=== PATIENT | male | born 1970 | race Caucasian/White ===

== ENCOUNTER → 2018-10-03 11:05 | Outpatient (CLI) | payer OTHER, SELFPAY ==
--- NOTE | 2018-10-03 | DI.RAD.S_ITS ---
PROCEDURE: XR CERVICAL SPINE 2V OR 3V INDICATIONS: NECK PAIN TECHNIQUE: 3 view(s) of the cervical spine were acquired. COMPARISON: None. FINDINGS: Bones: No fractures or dislocations to the T1 level. The lateral masses of C1 appear intact on the odontoid view. No suspicious bony lesions. There is a moderate to moderately severe degenerative disc disease pattern it C4-C5 and especially C5-6 and C6-7. No subluxation is associated. Soft tissues: No prevertebral soft tissue swelling. IMPRESSION: Moderately severe degenerative disc disease over lower half of the cervical spine where spinal and foraminal stenosis likely is present at C5-C6 and C6-C7. No trauma or subluxation. Dictated by: Aubrey Caceres M.D. on 10/03/2018 at 13:26 Approved by: Aubrey Caceres M.D. on 10/03/2018 at 13:27
--- NOTE | 2018-10-03 | DI.RAD.S_ITS ---
PROCEDURE: XR KNEE RT 3V INDICATIONS: Right KNEE PAIN TECHNIQUE: 3 views of the knee were acquired. COMPARISON: None. FINDINGS: Bones: No fractures or dislocations. No suspicious bony lesions. Soft tissues: No joint effusion. No suspicious soft tissue calcifications. IMPRESSION: Mild degenerative osteoarthritic narrowing is seen at the medial compartment and the lateral facet of the patellofemoral joint without joint effusion or loose body. Dictated by: Aubrey Caceres M.D. on 10/03/2018 at 13:27 Approved by: Aubrey Caceres M.D. on 10/03/2018 at 13:28
== END ==
PROVIDERS: PCP Family Medicine; Visit Provider Family Medicine
DX: M54.2 Cervicalgia (principal); M25.561 Pain in right knee; G31.89 Other specified degenerative diseases of nervous system
CPT/HCPCS: 72040; 73562

== ENCOUNTER → 2018-10-10 12:31 | Outpatient (CLI) | payer OTHER, SELFPAY ==
--- NOTE | 2018-10-10 | DI.US.S_ITS ---
PROCEDURE: US CAROTID DOPPLER BI INDICATIONS: DIZZINESS, GIDDINESS TECHNIQUE: Color and pulse Doppler interrogation was performed of both carotid systems, with image documentation and velocity measurements. COMPARISON: None. FINDINGS: Stenosis calculations are based on SRU (Society of Radiologists in Ultrasound) criteria. The flow velocities and the arterial waveforms are normal within both carotid arterial systems. Atherosclerotic plaque is seen on both sides. The estimated degree of internal carotid artery stenosis is less than 50%. Antegrade flow is confirmed within both vertebral arteries. This study is limited by body habitus. IMPRESSION: No hemodynamically significant stenosis is seen. Atherosclerotic plaque is noted bilaterally. Dictated by: Romulo Jj M.D. on 10/10/2018 at 14:33 Approved by: Romulo jJ M.D. on 10/10/2018 at 14:34
== END ==
PROVIDERS: PCP Family Medicine; Visit Provider Family Medicine
DX: R42 Dizziness and giddiness (principal); I65.23 Occlusion and stenosis of bilateral carotid arteries
CPT/HCPCS: 93880

== ENCOUNTER 2018-11-30 13:45 | Outpatient (RCR) | payer OTHER, SELFPAY ==
--- NOTE | 2018-10-05 16:30 | PT.OPPOC ---
Current Diagnoses Pain in right knee (10/05/18) Provider Visit Care Team Role Provider Type Becka Martinez MD Attending Provider Non-Staff Primary Care Provider Specialty: Family Practice Address: [address] [place] [address], [place], [address] Email: Plan Of Care PT-OP-T Assessment and Plan Start: 10/05/18 16:14 Freq: Status: Active Protocol: Document 10/05/18 16:15 EA (Rec: 10/05/18 16:18 EA [id number]) Physical Therapy Assessment Rehab Potential Rehabilitation Potential Fair Evaluation Complexity Number of Personal Factors/Comorbidities 1-2 Number of Body Systems Impaired 3 Clinical Presentation at Evaluation Evolving Impairments Impairments Activity Tolerance Gait Pain ROM Soft Tissue Mobility Strength Assessment Summary Assessment Pleasant 47 y/o M patient with referring diagnosis of right knee pain. Today patient exhibits gait difficulty, squatting, and getting up from the floor due to right knee pain. Objective assessment reveals decreased right knee ROM, slight right mid knee swelling, tightness to both ITB, and both hip E-rotators, + with R Valgus test, + [place] signs, R LLD with 2 cm difference, and instability of right knee with SLS. Postural assessment reveals fair cervicothoracic with endomorphic body, slight valgus knees with slight increase of lateral patellar tracking, and decreased arch support. With the above mentioned dysfunction, patient unable to perform activities that is normally no limitation prior to current condition. In my professional opinion, patient would benefit with skilled PT to improve quality of life. However, I recommended to see his primary doctor due to abnormal blood pressure which may negatively impact treatment progression. Physical Therapy Plan Frequency and Duration Frequency of Treatment 2x/Week Duration of Treatment 10 wks Plan of Care Start Date 10/05/18 Plan of Care End Date 12/14/18 Therapeutic Interventions Therapeutic Interventions Gait Training Home Exercise Program Joint Mobilizations Manual Therapy Patient/Caregiver Education Self-Care/Home Management Soft Tissue Mobilization Taping Therapeutic Activities Therapeutic Exercises Modalities Cold Pack/Ice Massage Electric Stimulation Hot Packs Ultrasound Other Referrals/Consults Referrals/Consults Recommended Physician re-check due to elevated BP (160/110) at rest. Next Visit Focus/Plan Next Note Type Treatment Note Plan of Care Dates Plan of Care Start Date 10/05/18 Plan of Care End Date 12/14/18 Please Sign and Return: I have reviewed this Plan of Care and certify that the skilled therapy services above are required to meet the patient?s needs. Physician Signature Date Printed Name and Credentials Clinical Instructor Signature Printed Name and Credentials
--- NOTE | 2018-10-05 16:30 | PT.OIE ---
Current Diagnoses Pain in right knee (10/05/18) Provider Visit Care Team Role Provider Type Becka Martinez MD Attending Provider Non-Staff Primary Care Provider Specialty: Family Practice Address: [address] [place] [address], [id number] Email: Physical Therapy Initial Evaluation PT-OP-A Visit Information Start: 10/05/18 16:14 Freq: Status: Active Protocol: Document 10/05/18 16:20 EA (Rec: 10/11/18 07:30 EA [id number]) Out-Patient Physical Therapy Visit Information Visit Information Visit Type Initial Evaluation Visit Start Time 13:45 Visit Stop Time 14:30 Total Visit Minutes 35 Visit Number 1 Number of METEOROLOGICAL TECHNICIAN Visits 0 Evaluation Information Evaluation Date 10/05/18 PT-OP-B Current Condition Start: 10/05/18 16:14 Freq: Status: Active Protocol: Document 10/05/18 16:20 EA (Rec: 10/11/18 07:30 EA [id number]) Current Condition History of Current Condition Onset Date 5 years ago Current Complaints R knee pain History of Current Condition 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 A year ago he noticed that he has difficulty getting up from the floor during physical training; he mentioned that his training managed with avoiding kneeling or putting pressure to affected side. He went for a doctor check up and was recommended at this time to avoid any physical training . 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 Prior Treatments and Tests No formal PT treatment in the past. 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 Get rid of the pain so he could get back skiing, distance walking and be able to attend training at work. 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 Personal Factors Other Personal Factors That May Effect High blood presure, Obesity. Therapy/Recovery PT-OP-C Subjective Start: 10/05/18 16:14 Freq: Status: Active Protocol: Document 10/05/18 16:20 EA (Rec: 10/11/18 13:49 EA [id number]) OP-PT Subjective Patient Comments Patient Comments Pt reports he has to stop activities such running, skiing and walking due to increasing pain. Patient Reported Progress Worse Patient Questionnaires Lower Extremity Functional Scale LEFS Score 58 LEFS Impairment 20 to 39% Impaired (Score 48- 62) OP-PT Pain Assessment Pain Assessment Grid Paper Pain Assessment Grid Completed Yes Location Left Anterior Knee Pain Location Details right ant knee Intensity 5 Pain Aggravating Factors Activity Exercise Walking Stair Climbing Lifting Patient Stated Pain Goal 0 Home Pain Medication Use Pain Medications Used Yes PT-OP-D Balance Start: 10/05/18 16:14 Freq: Status: Active Protocol: Document 10/05/18 16:20 EA (Rec: 10/11/18 15:33 EA [id number]) Balance Tests Single Limb Standing Single Limb- Right < 5 seconds Single Limb- Left > 10 seconds PT-OP-F Manual Assessment Start: 10/05/18 16:14 Freq: Status: Active Protocol: Document 10/05/18 16:20 EA (Rec: 10/11/18 13:49 EA [id number]) Manual Assessments Soft Tissue Assessment Soft Tissue Mobility Assessment Tight both hamstrings, hip ER, and ITB Joint Mobility Assessment Joint Mobility Assessment normal mobility PT-OP-G Mobility & Gait Start: 10/05/18 16:14 Freq: Status: Active Protocol: Document 10/05/18 16:20 EA (Rec: 10/11/18 13:49 EA [id number]) OP Gait Assessment Gait Gait Assistance Required: Independent Assistive Devices Assistive Device None Gait Deviations General Gait Pattern Antalgic PT-OP-J Posture/Palpation/Skin Start: 10/05/18 16:14 Freq: Status: Active Protocol: Document 10/05/18 16:20 EA (Rec: 10/11/18 15:33 EA [id number]) Palpation Assessment Location One Palpation Location medial patellar ligament, MCL, medial tibial tubercle Palpation Findings Tenderness Palpation Details Both hip External rotators, ITB, hamstrings, hip flexor tightness Skin Assessment Circumference Measurement 2 Location Right mid knee Measurement (Centimeters) 38 Comments supine 1 Location Left Mid knee joint Measurement (Centimeters) 33 Comments supine PT-OP-K Range of Motion Start: 10/05/18 16:14 Freq: Status: Active Protocol: Document 10/05/18 16:20 EA (Rec: 10/11/18 15:35 EA [id number]) Knee Goniometric Range of Motion Knee Measured in Degrees Left Knee ROM WFL Yes Right Knee ROM WFL Yes PT-OP-L Special Tests Start: 10/05/18 16:14 Freq: Status: Active Protocol: Document 10/05/18 16:20 EA (Rec: 10/11/18 15:33 EA [id number]) Special Tests Knee Special Tests Patellar Grind Test Test Results + right Valgus- 25 Degrees Test Results Sensitive Geronimo's Sign Test Results + Jeanette's Test Test Results + PT-OP-M Strength Start: 10/05/18 16:14 Freq: Status: Active Protocol: Document 10/05/18 16:20 EA (Rec: 10/11/18 15:33 EA [id number]) Knee Strength Knee Manual Muscle Testing Right Reason Not Measured WFL Comments Moderate difficulty with right single leg squat Left Reason Not Measured WFL PT-OP-Q Treatments Start: 10/05/18 16:14 Freq: Status: Active Protocol: Document 10/05/18 16:18 EA (Rec: 10/05/18 16:19 EA [id number]) Self-Care/Home Management Treatment Education Patient Education Home Exercise Program Joint Protection Pain Management Other Education Discussed the importance of weight loss with current knee condition and as well hypertension PT-OP-T Assessment and Plan Start: 10/05/18 16:14 Freq: Status: Active Protocol: Document 10/05/18 16:15 EA (Rec: 10/05/18 16:18 EA [id number]) Physical Therapy Assessment Rehab Potential Rehabilitation Potential Fair Evaluation Complexity Number of Personal Factors/Comorbidities 1-2 Number of Body Systems Impaired 3 Clinical Presentation at Evaluation Evolving Impairments Impairments Activity Tolerance Gait Pain ROM Soft Tissue Mobility Strength Assessment Summary Assessment Pleasant 47 y/o M patient with referring diagnosis of right knee pain. Today patient exhibits gait difficulty, squatting, and getting up from the floor due to right knee pain. Objective assessment reveals decreased right knee ROM, slight right mid knee swelling, tightness to both ITB, and both hip E-rotators, + with R Valgus test, + [place] signs, R LLD with 2 cm difference, and instability of right knee with SLS. Postural assessment reveals fair cervicothoracic with endomorphic body, slight valgus knees with slight increase of lateral patellar tracking, and decreased arch support. With the above mentioned dysfunction, patient unable to perform activities that is normally no limitation prior to current condition. In my professional opinion, patient would benefit with skilled PT to improve quality of life. However, I recommended to see his primary doctor due to abnormal blood pressure which may negatively impact treatment progression. Physical Therapy Plan Frequency and Duration Frequency of Treatment 2x/Week Duration of Treatment 10 wks Plan of Care Start Date 10/05/18 Plan of Care End Date 12/14/18 Therapeutic Interventions Therapeutic Interventions Gait Training Home Exercise Program Joint Mobilizations Manual Therapy Patient/Caregiver Education Self-Care/Home Management Soft Tissue Mobilization Taping Therapeutic Activities Therapeutic Exercises Modalities Cold Pack/Ice Massage Electric Stimulation Hot Packs Ultrasound Other Referrals/Consults Referrals/Consults Recommended Physician re-check due to elevated BP (160/110) at rest. Next Visit Focus/Plan Next Note Type Treatment Note
--- NOTE | 2018-10-20 12:22 | PT.OTN ---
Current Diagnoses Pain in right knee (10/20/18) Physical Therapy Treatment Note PT-OP-A Visit Information Start: 10/05/18 16:14 Freq: Status: Active Protocol: Document 10/20/18 11:15 HH (Rec: 10/20/18 12:22 HH [id number]) Out-Patient Physical Therapy Visit Information Visit Information Visit Type Treatment Note Visit Start Time 11:15 Visit Stop Time 12:00 Total Visit Minutes 45 Visit Number 2 Number of SUPERVISOR THROWING DEPARTMENT Visits 0 PT-OP-B Current Condition Start: 10/05/18 16:14 Freq: Status: Active Protocol: Document 10/05/18 16:20 EA (Rec: 10/11/18 07:30 EA [id number]) Current Condition History of Current Condition Onset Date 5 years ago Current Complaints R knee pain History of Current Condition 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 A year ago he noticed that he has difficulty getting up from the floor during physical training; he mentioned that his training managed with avoiding kneeling or putting pressure to affected side. He went for a doctor check up and was recommended at this time to avoid any physical training . 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 Prior Treatments and Tests No formal PT treament in the past. 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 Get rid of the pain so he could get back skiing, distance walking and be able to attend training at work. 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 Personal Factors Other Personal Factors That May Effect High blood presure, Obesity. Therapy/Recovery PT-OP-C Subjective Start: 10/05/18 16:14 Freq: Status: Active Protocol: Document 10/20/18 11:15 HH (Rec: 10/20/18 12:22 HH [email or web address]) OP-PT Subjective Patient Comments Patient Comments Pt states I feels okay so far. PT-OP-D Balance Start: 10/05/18 16:14 Freq: Status: Active Protocol: Document 10/05/18 16:20 EA (Rec: 10/11/18 15:33 EA [id number]) Balance Tests Single Limb Standing Single Limb- Right < 5 seconds Single Limb- Left > 10 seconds PT-OP-F Manual Assessment Start: 10/05/18 16:14 Freq: Status: Active Protocol: Document 10/05/18 16:20 EA (Rec: 10/11/18 13:49 EA [id number]) Manual Assessments Soft Tissue Assessment Soft Tissue Mobility Assessment Tight both hamstrings, hip ER, and ITB Joint Mobility Assessment Joint Mobility Assessment normal mobility PT-OP-G Mobility & Gait Start: 10/05/18 16:14 Freq: Status: Active Protocol: Document 10/05/18 16:20 EA (Rec: 10/11/18 13:49 EA [id number]) OP Gait Assessment Gait Gait Assistance Required: Independent Assistive Devices Assistive Device None Gait Deviations General Gait Pattern Antalgic PT-OP-J Posture/Palpation/Skin Start: 10/05/18 16:14 Freq: Status: Active Protocol: Document 10/05/18 16:20 EA (Rec: 10/11/18 15:33 EA [id number]) Palpation Assessment Location One Palpation Location medial patellar ligament, MCL, medial tibial tubercle Palpation Findings Tenderness Palpation Details Both hip External rotators, ITB, hamstrings, hip flexor tightness Skin Assessment Circumference Measurement 2 Location Right mid knee Measurement (Centimeters) 38 Comments supine 1 Location Left Mid knee joint Measurement (Centimeters) 33 Comments supine PT-OP-K Range of Motion Start: 10/05/18 16:14 Freq: Status: Active Protocol: Document 10/05/18 16:20 EA (Rec: 10/11/18 15:35 EA [id number]) Knee Goniometric Range of Motion Knee Measured in Degrees Left Knee ROM WFL Yes Right Knee ROM WFL Yes PT-OP-L Special Tests Start: 10/05/18 16:14 Freq: Status: Active Protocol: Document 10/05/18 16:20 EA (Rec: 10/11/18 15:33 EA [id number]) Special Tests Knee Special Tests Patellar Grind Test Test Results + right Valgus- 25 Degrees Test Results Sensitive Geronimo's Sign Test Results + Jeanette's Test Test Results + PT-OP-M Strength Start: 10/05/18 16:14 Freq: Status: Active Protocol: Document 10/05/18 16:20 EA (Rec: 10/11/18 15:33 EA [id number]) Knee Strength Knee Manual Muscle Testing Right Reason Not Measured WFL Comments Moderate difficulty with right single leg squat Left Reason Not Measured WFL PT-OP-Q Treatments Start: 10/05/18 16:14 Freq: Status: Active Protocol: Document 10/20/18 11:15 HH (Rec: 10/20/18 12:22 HH [email or web address]) Cardio Equipment Bicycle (Upright) Duration (Minutes) 8 Resistance 5 Therapeutic Exercises Standing Exercises quad stretch Side bilateral Equipment Used R ankle at table for support Reps/Minutes 10 x2 Comments cues for upright position. hip hinge Side bilateral Equipment Used grab bar Reps/Minutes 10 x4 Comments cues for hip hinge standing TKE Side right Resistance level 3 band Equipment Used level 3 band Reps/Minutes 10 x 4 Comments cues for slow control, avoid upper body movements Manual Therapy Treatment Soft Tissue Mobilization IT band Mobilization Type Strumming Sustained Pressure Trigger Point Release Intensity/Depth Moderate Body Position Supine quad Mobilization Type Cross-Friction Strumming Sustained Pressure Trigger Point Release Intensity/Depth Moderate Body Position Supine patellar tendon Mobilization Type Cross-Friction Strumming Sustained Pressure Trigger Point Release Intensity/Depth Moderate Body Position Supine PT-OP-T Assessment and Plan Start: 10/05/18 16:14 Freq: Status: Active Protocol: Document 10/20/18 11:15 HH (Rec: 10/20/18 12:22 HH [email or web address]) Physical Therapy Assessment Goals squat mechanics Impairment Pt does not know hip hinge pattern Detention Goal (LTG) pt will be able to perform hip hinge pattern for STS, lowering activities to prevent excessive PF stress LTG Duration 8 weeks pain Impairment significant pain during walking, squatting Manager Heart Failure Goal (LTG) pt will be able to perform prolonged walking and squatting without pain to improve mobility such as STS at home/ work LTG Duration 8 weeks mobility Impairment pt currently unable to do lunge due to pain Detention Goal (LTG) pt will be able to perform lunges from floor without UE support during work related training. LTG Duration 8 weeks Assessment Summary Assessment Pt presents knee dominant pattern during STS/ squatting activities. He also tends to WB on his L LE during dynamic/ static standing. today focus on R TKE, manual therapy on patellar tendon, quad, quad stretch and hip hinge pattern. Pt reports pain significantly reduced with hip hinge pattern and after patellar tendon stm., Physical Therapy Plan Next Visit Focus/Plan Next Note Type Treatment Note Next Visit Plan reassess hep hip hinge pattern training bicycle R TKE squat with hip hinge pattern as davin
--- NOTE | 2018-11-03 16:41 | PT.OTN ---
Current Diagnoses Pain in right knee (11/03/18) Physical Therapy Treatment Note PT-OP-A Visit Information Start: 10/05/18 16:14 Freq: Status: Active Protocol: Document 11/03/18 15:15 HH (Rec: 11/03/18 16:41 HH [email or web address]) Out-Patient Physical Therapy Visit Information Visit Information Visit Type Treatment Note Visit Start Time 15:15 Visit Stop Time 16:00 Total Visit Minutes 45 Visit Number 3 Number of CRYSTAL LAPPER Visits 0 PT-OP-B Current Condition Start: 10/05/18 16:14 Freq: Status: Active Protocol: Document 10/05/18 16:20 EA (Rec: 10/11/18 07:30 EA [id number]) Current Condition History of Current Condition Onset Date 5 years ago Current Complaints R knee pain History of Current Condition 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 A year ago he noticed that he has difficulty getting up from the floor during physical training; he mentioned that his training managed with avoiding kneeling or putting pressure to affected side. He went for a doctor check up and was recommended at this time to avoid any physical training . 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 Prior Treatments and Tests No formal PT treament in the past. 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 Get rid of the pain so he could get back skiing, distance walking and be able to attend training at work. 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 Personal Factors Other Personal Factors That May Effect High blood presure, Obesity. Therapy/Recovery PT-OP-C Subjective Start: 10/05/18 16:14 Freq: Status: Active Protocol: Document 11/03/18 15:15 HH (Rec: 11/03/18 16:41 HH [email or web address]) OP-PT Subjective Patient Comments Patient Comments my knee doesnt both me much now. merlin been doing my knee ex and using hip hinge to lift. It helps a lot. PT-OP-D Balance Start: 10/05/18 16:14 Freq: Status: Active Protocol: Document 10/05/18 16:20 EA (Rec: 10/11/18 15:33 EA [id number]) Balance Tests Single Limb Standing Single Limb- Right < 5 seconds Single Limb- Left > 10 seconds PT-OP-F Manual Assessment Start: 10/05/18 16:14 Freq: Status: Active Protocol: Document 10/05/18 16:20 EA (Rec: 10/11/18 13:49 EA [id number]) Manual Assessments Soft Tissue Assessment Soft Tissue Mobility Assessment Tight both hamstrings, hip ER, and ITB Joint Mobility Assessment Joint Mobility Assessment normal mobility PT-OP-G Mobility & Gait Start: 10/05/18 16:14 Freq: Status: Active Protocol: Document 10/05/18 16:20 EA (Rec: 10/11/18 13:49 EA [id number]) OP Gait Assessment Gait Gait Assistance Required: Independent Assistive Devices Assistive Device None Gait Deviations General Gait Pattern Antalgic PT-OP-J Posture/Palpation/Skin Start: 10/05/18 16:14 Freq: Status: Active Protocol: Document 10/05/18 16:20 EA (Rec: 10/11/18 15:33 EA [id number]) Palpation Assessment Location One Palpation Location medial patellar ligament, MCL, medial tibial tubercle Palpation Findings Tenderness Palpation Details Both hip External rotators, ITB, hamstrings, hip flexor tightness Skin Assessment Circumference Measurement 2 Location Right mid knee Measurement (Centimeters) 38 Comments supine 1 Location Left Mid knee joint Measurement (Centimeters) 33 Comments supine PT-OP-K Range of Motion Start: 10/05/18 16:14 Freq: Status: Active Protocol: Document 10/05/18 16:20 EA (Rec: 10/11/18 15:35 EA [id number]) Knee Goniometric Range of Motion Knee Measured in Degrees Left Knee ROM WFL Yes Right Knee ROM WFL Yes PT-OP-L Special Tests Start: 10/05/18 16:14 Freq: Status: Active Protocol: Document 10/05/18 16:20 EA (Rec: 10/11/18 15:33 EA [id number]) Special Tests Knee Special Tests Patellar Grind Test Test Results + right Valgus- 25 Degrees Test Results Sensitive Geronimo's Sign Test Results + Jeanette's Test Test Results + PT-OP-M Strength Start: 10/05/18 16:14 Freq: Status: Active Protocol: Document 10/05/18 16:20 EA (Rec: 10/11/18 15:33 EA [id number]) Knee Strength Knee Manual Muscle Testing Right Reason Not Measured WFL Comments Moderate difficulty with right single leg squat Left Reason Not Measured WFL PT-OP-Q Treatments Start: 10/05/18 16:14 Freq: Status: Active Protocol: Document 11/03/18 15:15 HH (Rec: 11/03/18 16:41 HH [email or web address]) Cardio Equipment Recumbent Stepper (Sci-Fit) Duration (Minutes) 5 Resistance 6 Gym Equipment Shuttle Recovery B squat forefoot push off Resistance 50# Shuttle Recovery Platform Stable Reps/Time 10 x 3 B squat mid foot push off Resistance 75# Shuttle Recovery Platform Stable Reps/Time 10 x3 B squat heel push off Resistance 75 # Shuttle Recovery Platform Stable Reps/Time 10 x3 Sport Cord resisted hip hinge Cord/Resistance red Reps/Duration 5 mins Comments resisted hip hinge Therapeutic Exercises Sitting Exercises deadlift Side bilateral Reps/Minutes 10x3 Comments cues for hip hinge Manual Therapy Treatment Soft Tissue Mobilization IT band Mobilization Type Strumming Sustained Pressure Trigger Point Release Intensity/Depth Moderate Body Position Supine quad Mobilization Type Cross-Friction Strumming Sustained Pressure Trigger Point Release Intensity/Depth Moderate Body Position Supine PT-OP-T Assessment and Plan Start: 10/05/18 16:14 Freq: Status: Active Protocol: Document 11/03/18 15:15 HH (Rec: 11/03/18 16:41 HH [email or web address]) Physical Therapy Assessment Goals squat mechanics Impairment Pt does not know hip hinge pattern Manager Of Maintenance Goal (LTG) pt will be able to perform hip hinge pattern for STS, lowering activities to prevent excessive PF stress LTG Duration 8 weeks pain Impairment significant pain during walking, squatting Manager Of Maintenance Goal (LTG) pt will be able to perform prolonged walking and squatting without pain to improve mobility such as STS at home/ work LTG Duration 8 weeks mobility Impairment pt currently unable to do lunge due to pain Jail Goal (LTG) pt will be able to perform lunges from floor without UE support during work related training. Assessment Summary Assessment Pt has improved symptoms recently with better understanding using hip hinge pattern for lifting objects. Pt current pain threshold at 75# during leg press. but symptoms decrease with increase in reps. will cont for B LE strengthening with slow control and add full body exercise to assist pt in weight loss. Physical Therapy Plan Next Visit Focus/Plan Next Note Type Treatment Note Next Visit Plan reassess hep hip hinge pattern training bicycle R TKE squat with hip hinge pattern as davin leg press from 75# slow eccentric.
--- NOTE | 2018-11-07 17:51 | PT.OTN ---
Current Diagnoses Pain in right knee (11/07/18) Physical Therapy Treatment Note PT-OP-A Visit Information Start: 10/05/18 16:14 Freq: Status: Active Protocol: Document 11/07/18 16:45 HH (Rec: 11/07/18 17:51 HH [email or web address]) Out-Patient Physical Therapy Visit Information Visit Information Visit Type Treatment Note Visit Start Time 16:45 Visit Stop Time 17:40 Total Visit Minutes 55 Visit Number 4 Number of OIL EXPELLER OPERATOR Visits 0 PT-OP-B Current Condition Start: 10/05/18 16:14 Freq: Status: Active Protocol: Document 10/05/18 16:20 EA (Rec: 10/11/18 07:30 EA [id number]) Current Condition History of Current Condition Onset Date 5 years ago Current Complaints R knee pain History of Current Condition 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 A year ago he noticed that he has difficulty getting up from the floor during physical training; he mentioned that his training managed with avoiding kneeling or putting pressure to affected side. He went for a doctor check up and was recommended at this time to avoid any physical training . 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 Prior Treatments and Tests No formal PT treament in the past. 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 Get rid of the pain so he could get back skiing, distance walking and be able to attend training at work. 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 Personal Factors Other Personal Factors That May Effect High blood presure, Obesity. Therapy/Recovery PT-OP-C Subjective Start: 10/05/18 16:14 Freq: Status: Active Protocol: Document 11/07/18 16:45 HH (Rec: 11/07/18 17:51 HH [email or web address]) OP-PT Subjective Patient Comments Patient Comments My knee got aggravated a little bit after last tx with leg press but it goes away within 2 days. Overall feel better. Patient Reported Progress Improving PT-OP-D Balance Start: 10/05/18 16:14 Freq: Status: Active Protocol: Document 10/05/18 16:20 EA (Rec: 10/11/18 15:33 EA [id number]) Balance Tests Single Limb Standing Single Limb- Right < 5 seconds Single Limb- Left > 10 seconds PT-OP-F Manual Assessment Start: 10/05/18 16:14 Freq: Status: Active Protocol: Document 10/05/18 16:20 EA (Rec: 10/11/18 13:49 EA [id number]) Manual Assessments Soft Tissue Assessment Soft Tissue Mobility Assessment Tight both hamstrings, hip ER, and ITB Joint Mobility Assessment Joint Mobility Assessment normal mobility PT-OP-G Mobility & Gait Start: 10/05/18 16:14 Freq: Status: Active Protocol: Document 10/05/18 16:20 EA (Rec: 10/11/18 13:49 EA [id number]) OP Gait Assessment Gait Gait Assistance Required: Independent Assistive Devices Assistive Device None Gait Deviations General Gait Pattern Antalgic PT-OP-J Posture/Palpation/Skin Start: 10/05/18 16:14 Freq: Status: Active Protocol: Document 10/05/18 16:20 EA (Rec: 10/11/18 15:33 EA [id number]) Palpation Assessment Location One Palpation Location medial patellar ligament, MCL, medial tibial tubercle Palpation Findings Tenderness Palpation Details Both hip External rotators, ITB, hamstrings, hip flexor tightness Skin Assessment Circumference Measurement 2 Location Right mid knee Measurement (Centimeters) 38 Comments supine 1 Location Left Mid knee joint Measurement (Centimeters) 33 Comments supine PT-OP-K Range of Motion Start: 10/05/18 16:14 Freq: Status: Active Protocol: Document 10/05/18 16:20 EA (Rec: 10/11/18 15:35 EA [id number]) Knee Goniometric Range of Motion Knee Measured in Degrees Left Knee ROM WFL Yes Right Knee ROM WFL Yes PT-OP-L Special Tests Start: 10/05/18 16:14 Freq: Status: Active Protocol: Document 10/05/18 16:20 EA (Rec: 10/11/18 15:33 EA [id number]) Special Tests Knee Special Tests Patellar Grind Test Test Results + right Valgus- 25 Degrees Test Results Sensitive Geronimo's Sign Test Results + Jeanette's Test Test Results + PT-OP-M Strength Start: 10/05/18 16:14 Freq: Status: Active Protocol: Document 10/05/18 16:20 EA (Rec: 10/11/18 15:33 EA [id number]) Knee Strength Knee Manual Muscle Testing Right Reason Not Measured WFL Comments Moderate difficulty with right single leg squat Left Reason Not Measured WFL PT-OP-Q Treatments Start: 10/05/18 16:14 Freq: Status: Active Protocol: Document 11/07/18 16:45 HH (Rec: 11/07/18 17:51 HH [email or web address]) Cardio Equipment Bicycle (Upright) Duration (Minutes) 8 Resistance 5 Gym Equipment Shuttle Recovery B squat forefoot push off Resistance 50# Shuttle Recovery Platform Stable Reps/Time 10 x3 with green band on knees B squat mid foot push off Resistance 75# Shuttle Recovery Platform Stable Reps/Time 10 x3 with green band on knees B squat heel push off Resistance 75 # Shuttle Recovery Platform Stable Reps/Time 10 x3 with green band on knees Sport Cord resisted hip hinge Cord/Resistance red Reps/Duration 5 mins Comments resisted hip hinge Therapeutic Exercises Standing Exercises single leg stance with knee bent Side bilateral Reps/Minutes 10 secs x6 Comments slight knee bent single leg stance with knee straight Side bilateral Reps/Minutes 10 secs x 6 Comments knee straight standing TKE Side right Resistance level 3 band Equipment Used level 3 band Reps/Minutes 10 x 4 Comments cues for slow control, avoid upper body movements Manual Therapy Treatment Soft Tissue Mobilization IT band Mobilization Type Strumming Sustained Pressure Trigger Point Release Intensity/Depth Moderate Body Position Supine quad Mobilization Type Cross-Friction Strumming Sustained Pressure Trigger Point Release Intensity/Depth Moderate Body Position Supine patellar tendon Mobilization Type Cross-Friction Strumming Sustained Pressure Trigger Point Release Intensity/Depth Moderate Body Position Supine PT-OP-T Assessment and Plan Start: 10/05/18 16:14 Freq: Status: Active Protocol: Document 11/07/18 16:45 HH (Rec: 11/07/18 17:51 HH [email or web address]) Physical Therapy Assessment Assessment Summary Assessment Focused on single leg stability and squat mechanics. Pt has significant poor single leg stance on R compared to L. Pt also reports his pain went away immediately and able to squat deeper during leg press with abduction band at knees. Physical Therapy Plan Next Visit Focus/Plan Next Note Type Treatment Note Next Visit Plan reassess hep hip abd band on knees for squatting activtiies. hip hinge pattern training bicycle R TKE squat with hip hinge pattern as davin leg press from 75# slow eccentric.
--- NOTE | 2018-11-10 10:36 | PT.OTN ---
Current Diagnoses Pain in right knee (11/10/18) Physical Therapy Treatment Note PT-OP-A Visit Information Start: 10/05/18 16:14 Freq: Status: Active Protocol: Document 11/10/18 10:36 RCC (Rec: 11/10/18 13:12 RCC [email or web address]) Out-Patient Physical Therapy Visit Information Visit Information Visit Type Treatment Note Visit Start Time 10:36 Visit Stop Time 11:15 Total Visit Minutes 39 Visit Number 5 Number of PAYROLL ANALYST Visits 0 Evaluation Information Evaluation Date 10/05/18 PT-OP-B Current Condition Start: 10/05/18 16:14 Freq: Status: Active Protocol: Document 10/05/18 16:20 EA (Rec: 10/11/18 07:30 EA [id number]) Current Condition History of Current Condition Onset Date 5 years ago Current Complaints R knee pain History of Current Condition 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 A year ago he noticed that he has difficulty getting up from the floor during physical training; he mentioned that his training managed with avoiding kneeling or putting pressure to affected side. He went for a doctor check up and was recommended at this time to avoid any physical training . 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 Prior Treatments and Tests No formal PT treament in the past. 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 Get rid of the pain so he could get back skiing, distance walking and be able to attend training at work. 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 Personal Factors Other Personal Factors That May Effect High blood presure, Obesity. Therapy/Recovery PT-OP-C Subjective Start: 10/05/18 16:14 Freq: Status: Active Protocol: Document 11/10/18 10:36 RCC (Rec: 11/10/18 13:12 RCC [email or web address]) OP-PT Subjective Patient Comments Patient Comments Pt walked 1.5 to 2 miles yesterday, with R knee pain increasing to 6/10. He took ibuprofen this morning which has helped. PT-OP-D Balance Start: 10/05/18 16:14 Freq: Status: Active Protocol: Document 10/05/18 16:20 EA (Rec: 10/11/18 15:33 EA [id number]) Balance Tests Single Limb Standing Single Limb- Right < 5 seconds Single Limb- Left > 10 seconds PT-OP-F Manual Assessment Start: 10/05/18 16:14 Freq: Status: Active Protocol: Document 11/10/18 10:36 RCC (Rec: 11/10/18 13:12 RCC [email or web address]) Manual Assessments Joint Mobility Assessment Joint Mobility Assessment mild hypomobile PF inferior glide PT-OP-G Mobility & Gait Start: 10/05/18 16:14 Freq: Status: Active Protocol: Document 10/05/18 16:20 EA (Rec: 10/11/18 13:49 EA [id number]) OP Gait Assessment Gait Gait Assistance Required: Independent Assistive Devices Assistive Device None Gait Deviations General Gait Pattern Antalgic PT-OP-J Posture/Palpation/Skin Start: 10/05/18 16:14 Freq: Status: Active Protocol: Document 10/05/18 16:20 EA (Rec: 10/11/18 15:33 EA [id number]) Palpation Assessment Location One Palpation Location medial patellar ligament, MCL, medial tibial tubercle Palpation Findings Tenderness Palpation Details Both hip External rotators, ITB, hamstrings, hip flexor tightness Skin Assessment Circumference Measurement 2 Location Right mid knee Measurement (Centimeters) 38 Comments supine 1 Location Left Mid knee joint Measurement (Centimeters) 33 Comments supine PT-OP-K Range of Motion Start: 10/05/18 16:14 Freq: Status: Active Protocol: Document 10/05/18 16:20 EA (Rec: 10/11/18 15:35 EA [id number]) Knee Goniometric Range of Motion Knee Measured in Degrees Left Knee ROM WFL Yes Right Knee ROM WFL Yes PT-OP-L Special Tests Start: 10/05/18 16:14 Freq: Status: Active Protocol: Document 10/05/18 16:20 EA (Rec: 10/11/18 15:33 EA [id number]) Special Tests Knee Special Tests Patellar Grind Test Test Results + right Valgus- 25 Degrees Test Results Sensitive Geronimo's Sign Test Results + Jeanette's Test Test Results + PT-OP-M Strength Start: 10/05/18 16:14 Freq: Status: Active Protocol: Document 10/05/18 16:20 EA (Rec: 10/11/18 15:33 EA [id number]) Knee Strength Knee Manual Muscle Testing Right Reason Not Measured WFL Comments Moderate difficulty with right single leg squat Left Reason Not Measured WFL PT-OP-Q Treatments Start: 10/05/18 16:14 Freq: Status: Active Protocol: Document 11/10/18 10:36 RCC (Rec: 11/10/18 13:12 RCC [email or web address]) Gym Equipment Shuttle Recovery B squat forefoot push off Resistance 50# Shuttle Recovery Platform Stable Reps/Time 10 x3 B squat mid foot push off Resistance 50# Shuttle Recovery Platform Stable Reps/Time 10 x3 B squat heel push off Resistance 50 # Shuttle Recovery Platform Stable Reps/Time 10 x3 Shuttle Balance Red Details normal stance EO: A/P and lateral Reps/Duration 10 min Comments emphasis on even WB, knee alignment, core stability Therapeutic Exercises Standing Exercises lateral walk with squat Standing Exercise Name lateral walk with squat Side bilateral Resistance L2 band around knees Reps/Minutes 1 lap each direction standing TKE Side right Resistance level 3 band Equipment Used level 3 band Reps/Minutes 10 x 4 Comments cues for slow control, avoid upper body movements Manual Therapy Treatment Soft Tissue Mobilization patellar tendon Mobilization Type Cross-Friction Strumming Intensity/Depth Moderate Body Position Supine Joint Mobilizations patellofemoral R Direction inferior Grade III Body Position Supine Reps/Duration 4 min Taping 1 Body Location R knee Type of Tape Kinesio Tape Skin Inspection clear/good Comments 2 Y strips anterior R knee PT-OP-T Assessment and Plan Start: 10/05/18 16:14 Freq: Status: Active Protocol: Document 11/10/18 10:36 RCC (Rec: 11/10/18 13:12 RCC [email or web address]) Physical Therapy Assessment Assessment Summary Assessment Pt with less discomfort in R knee with squatting with application of Kinesiotape this session. Pt requires tactile cuing for LE alignment with squatting and on leg press initially, but able to self correct after 1st set. Physical Therapy Plan Next Visit Focus/Plan Next Note Type Treatment Note Next Visit Plan cont to educate and perform squats with hip hinge, hip strengthening, quad/HS strength and knee alignment
--- NOTE | 2018-11-23 15:17 | PT.OTN ---
Current Diagnoses Pain in right knee (11/23/18) Physical Therapy Treatment Note PT-OP-A Visit Information Start: 10/05/18 16:14 Freq: Status: Active Protocol: Document 11/23/18 14:25 EA (Rec: 11/23/18 14:33 EA [id number]) Out-Patient Physical Therapy Visit Information Visit Information Visit Type Treatment Note Visit Start Time 13:45 Visit Stop Time 14:30 Total Visit Minutes 45 Visit Number 6 PT-OP-B Current Condition Start: 10/05/18 16:14 Freq: Status: Active Protocol: Document 10/05/18 16:20 EA (Rec: 10/11/18 07:30 EA [id number]) Current Condition History of Current Condition Onset Date 5 years ago Current Complaints R knee pain History of Current Condition 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 A year ago he noticed that he has difficulty getting up from the floor during physical training; he mentioned that his training managed with avoiding kneeling or putting pressure to affected side. He went for a doctor check up and was recommended at this time to avoid any physical training . 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 Prior Treatments and Tests No formal PT treament in the past. 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 Get rid of the pain so he could get back skiing, distance walking and be able to attend training at work. 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 Personal Factors Other Personal Factors That May Effect High blood presure, Obesity. Therapy/Recovery PT-OP-C Subjective Start: 10/05/18 16:14 Freq: Status: Active Protocol: Document 11/23/18 14:25 EA (Rec: 11/23/18 14:33 EA [id number]) OP-PT Subjective Patient Comments Patient Comments PT reports he can't recalled if he rolled his ankle after last treatment session; all he remember is stepped on his right foot and felt popped sound to right ankle; states swelled up and hot after an hour. He reports place an ICE pack and elevated . He mentioned that they went for a long drive 2 days after the ankle injury. He feels right knee is much feeling better and ankle is 90% recovered. PT-OP-D Balance Start: 10/05/18 16:14 Freq: Status: Active Protocol: Document 10/05/18 16:20 EA (Rec: 10/11/18 15:33 EA [id number]) Balance Tests Single Limb Standing Single Limb- Right < 5 seconds Single Limb- Left > 10 seconds PT-OP-F Manual Assessment Start: 10/05/18 16:14 Freq: Status: Active Protocol: Document 11/10/18 10:36 RCC (Rec: 11/10/18 13:12 RCC [id number]) Manual Assessments Joint Mobility Assessment Joint Mobility Assessment mild hypomobile PF inferior glide PT-OP-G Mobility & Gait Start: 10/05/18 16:14 Freq: Status: Active Protocol: Document 10/05/18 16:20 EA (Rec: 10/11/18 13:49 EA [id number]) OP Gait Assessment Gait Gait Assistance Required: Independent Assistive Devices Assistive Device None Gait Deviations General Gait Pattern Antalgic PT-OP-J Posture/Palpation/Skin Start: 10/05/18 16:14 Freq: Status: Active Protocol: Document 10/05/18 16:20 EA (Rec: 10/11/18 15:33 EA [id number]) Palpation Assessment Location One Palpation Location medial patellar ligament, MCL, medial tibial tubercle Palpation Findings Tenderness Palpation Details Both hip External rotators, ITB, hamstrings, hip flexor tightness Skin Assessment Circumference Measurement 2 Location Right mid knee Measurement (Centimeters) 38 Comments supine 1 Location Left Mid knee joint Measurement (Centimeters) 33 Comments supine PT-OP-K Range of Motion Start: 10/05/18 16:14 Freq: Status: Active Protocol: Document 10/05/18 16:20 EA (Rec: 10/11/18 15:35 EA [id number]) Knee Goniometric Range of Motion Knee Measured in Degrees Left Knee ROM WFL Yes Right Knee ROM WFL Yes PT-OP-L Special Tests Start: 10/05/18 16:14 Freq: Status: Active Protocol: Document 10/05/18 16:20 EA (Rec: 10/11/18 15:33 EA [id number]) Special Tests Knee Special Tests Patellar Grind Test Test Results + right Valgus- 25 Degrees Test Results Sensitive Geronimo's Sign Test Results + Jeanette's Test Test Results + PT-OP-M Strength Start: 10/05/18 16:14 Freq: Status: Active Protocol: Document 10/05/18 16:20 EA (Rec: 10/11/18 15:33 EA [id number]) Knee Strength Knee Manual Muscle Testing Right Reason Not Measured WFL Comments Moderate difficulty with right single leg squat Left Reason Not Measured WFL PT-OP-Q Treatments Start: 10/05/18 16:14 Freq: Status: Active Protocol: Document 11/23/18 14:25 EA (Rec: 11/23/18 14:33 EA [id number]) Cardio Equipment Recumbent Stepper (Sci-Fit) Duration (Minutes) 5 Resistance 6 Gym Equipment Shuttle Recovery Unilateral Squats Resistance 25# Reps/Time x 15 reps x 2 B squat forefoot push off Resistance 50# Shuttle Recovery Platform Stable Reps/Time 15 x3 Therapeutic Exercises Supine Exercises 1 Supine Exercise Name Hamstring stretch Reps/Minutes x 15SH x 2 reps Sidelying Exercises 1 Sidelying Exercise Name ITB band stretch Reps/Minutes x15SH x 2 reps Manual Therapy Treatment Soft Tissue Mobilization IT band Mobilization Type Strumming Sustained Pressure Trigger Point Release Intensity/Depth Moderate Body Position Supine patellar tendon Mobilization Type Cross-Friction Strumming Intensity/Depth Moderate Body Position Supine Taping 1 Body Location R knee Type of Tape Kinesio Tape Skin Inspection clear/good Comments 2 Y strips anterior R knee prior to therex PT-OP-R Modalities Start: 10/05/18 16:14 Freq: Status: Active Protocol: Document 11/23/18 15:14 EA (Rec: 11/23/18 15:16 EA [id number]) Hot Pack/Cold Pack Treatment Cold Pack Patient Position Hooklying Treatment Duration (minutes) 15 Patient Tolerance Good PT-OP-T Assessment and Plan Start: 10/05/18 16:14 Freq: Status: Active Protocol: Document 11/23/18 15:14 SUNI (Rec: 11/23/18 15:16 EA [id number]) Physical Therapy Assessment Assessment Summary Assessment Patient ambulates with near to normal gait during and after the session. I recommended to see his physician for further eval to right ankle. Overall patient right knee is progressing slowly. Physical Therapy Plan Next Visit Focus/Plan Next Note Type Treatment Note
--- NOTE | 2018-11-28 14:28 | PT.OTN ---
Current Diagnoses Pain in right knee (11/28/18) Physical Therapy Treatment Note PT-OP-A Visit Information Start: 10/05/18 16:14 Freq: Status: Active Protocol: Document 11/28/18 13:44 LR (Rec: 11/28/18 14:27 [facility] [id number]) Out-Patient Physical Therapy Visit Information Visit Information Visit Type Treatment Note Visit Start Time 13:45 Visit Stop Time 14:25 Total Visit Minutes 40 Visit Number 7 PT-OP-B Current Condition Start: 10/05/18 16:14 Freq: Status: Active Protocol: Document 10/05/18 16:20 EA (Rec: 10/11/18 07:30 EA [id number]) Current Condition History of Current Condition Onset Date 5 years ago Current Complaints R knee pain History of Current Condition 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 A year ago he noticed that he has difficulty getting up from the floor during physical training; he mentioned that his training managed with avoiding kneeling or putting pressure to affected side. He went for a doctor check up and was recommended at this time to avoid any physical training . 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 Prior Treatments and Tests No formal PT treament in the past. 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 Get rid of the pain so he could get back skiing, distance walking and be able to attend training at work. 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 Personal Factors Other Personal Factors That May Effect High blood presure, Obesity. Therapy/Recovery PT-OP-C Subjective Start: 10/05/18 16:14 Freq: Status: Active Protocol: Document 11/28/18 13:44 [facility] (Rec: 11/28/18 14:27 [facility] [id number]) OP-PT Subjective Patient Comments Patient Comments Pt reports knee and ankle are both feeling better. If he stands on it for a while it hurts. more of an annoying pain PT-OP-D Balance Start: 10/05/18 16:14 Freq: Status: Active Protocol: Document 10/05/18 16:20 EA (Rec: 10/11/18 15:33 EA [id number]) Balance Tests Single Limb Standing Single Limb- Right < 5 seconds Single Limb- Left > 10 seconds PT-OP-F Manual Assessment Start: 10/05/18 16:14 Freq: Status: Active Protocol: Document 11/10/18 10:36 RCC (Rec: 11/10/18 13:12 RCC [id number]) Manual Assessments Joint Mobility Assessment Joint Mobility Assessment mild hypomobile PF inferior glide PT-OP-G Mobility & Gait Start: 10/05/18 16:14 Freq: Status: Active Protocol: Document 10/05/18 16:20 EA (Rec: 10/11/18 13:49 EA [id number]) OP Gait Assessment Gait Gait Assistance Required: Independent Assistive Devices Assistive Device None Gait Deviations General Gait Pattern Antalgic PT-OP-J Posture/Palpation/Skin Start: 10/05/18 16:14 Freq: Status: Active Protocol: Document 10/05/18 16:20 EA (Rec: 10/11/18 15:33 EA [id number]) Palpation Assessment Location One Palpation Location medial patellar ligament, MCL, medial tibial tubercle Palpation Findings Tenderness Palpation Details Both hip External rotators, ITB, hamstrings, hip flexor tightness Skin Assessment Circumference Measurement 2 Location Right mid knee Measurement (Centimeters) 38 Comments supine 1 Location Left Mid knee joint Measurement (Centimeters) 33 Comments supine PT-OP-K Range of Motion Start: 10/05/18 16:14 Freq: Status: Active Protocol: Document 10/05/18 16:20 EA (Rec: 10/11/18 15:35 EA [id number]) Knee Goniometric Range of Motion Knee Measured in Degrees Left Knee ROM WFL Yes Right Knee ROM WFL Yes PT-OP-L Special Tests Start: 10/05/18 16:14 Freq: Status: Active Protocol: Document 10/05/18 16:20 EA (Rec: 10/11/18 15:33 EA [id number]) Special Tests Knee Special Tests Patellar Grind Test Test Results + right Valgus- 25 Degrees Test Results Sensitive Geronimo's Sign Test Results + Jeanette's Test Test Results + PT-OP-M Strength Start: 10/05/18 16:14 Freq: Status: Active Protocol: Document 10/05/18 16:20 EA (Rec: 10/11/18 15:33 EA [id number]) Knee Strength Knee Manual Muscle Testing Right Reason Not Measured WFL Comments Moderate difficulty with right single leg squat Left Reason Not Measured WFL PT-OP-Q Treatments Start: 10/05/18 16:14 Freq: Status: Active Protocol: Document 11/28/18 13:44 [facility] (Rec: 11/28/18 14:27 LR [id number]) Cardio Equipment Bicycle (Upright) Duration (Minutes) 6 Resistance 6-8 Seat Position 6 Gym Equipment Shuttle Recovery Unilateral Squats Resistance 37# Reps/Time x 10 reps x 2 B squat mid foot push off Resistance 75# Shuttle Recovery Platform Stable Reps/Time 2x15 Therapeutic Exercises Standing Exercises lunge Standing Exercise Name mini Side bilateral Reps/Minutes 10 lateral walk with squat Standing Exercise Name lateral walk with squat Side bilateral Resistance L2 band around knees Reps/Minutes 20ft B single leg stance with knee bent Standing Exercise Name SLS Side bilateral Reps/Minutes [id number] single leg stance with knee straight Standing Exercise Name SLS Side bilateral Reps/Minutes [id number] Manual Therapy Treatment Soft Tissue Mobilization IT band Mobilization Type Strumming Sustained Pressure Trigger Point Release Intensity/Depth Moderate Body Position Supine PT-OP-R Modalities Start: 10/05/18 16:14 Freq: Status: Active Protocol: Document 11/23/18 15:14 EA (Rec: 11/23/18 15:16 EA [id number]) Hot Pack/Cold Pack Treatment Cold Pack Patient Position Hooklying Treatment Duration (minutes) 15 Patient Tolerance Good PT-OP-T Assessment and Plan Start: 10/05/18 16:14 Freq: Status: Active Protocol: Document 11/28/18 13:44 [facility] (Rec: 11/28/18 14:27 [facility] [id number]) Physical Therapy Assessment Goals squat mechanics Impairment Pt does not know hip hinge pattern Vegetable Handler Goal (LTG) pt will be able to perform hip hinge pattern for STS, lowering activities to prevent excessive PF stress LTG Duration 8 weeks pain Impairment significant pain during walking, squatting Jail Goal (LTG) pt will be able to perform prolonged walking and squatting without pain to improve mobility such as STS at home/ work LTG Duration 8 weeks mobility Impairment pt currently unable to do lunge due to pain Jail Goal (LTG) pt will be able to perform lunges from floor without UE support during work related training. Assessment Summary Assessment Pt able to tolerate increased resistance and inc in exercises without inc in pain. He has significant R ITB tightness and educated on importance of stretching at home. Physical Therapy Plan Frequency and Duration Frequency of Treatment 2x/Week Duration of Treatment 10 wks Plan of Care Start Date 10/05/18 Plan of Care End Date 12/14/18 Next Visit Focus/Plan Next Note Type Treatment Note Next Visit Plan cont to work on glute & quad stability
--- NOTE | 2018-11-30 14:30 | PT.OTN ---
Current Diagnoses Pain in right knee (11/30/18) Physical Therapy Treatment Note PT-OP-A Visit Information Start: 10/05/18 16:14 Freq: Status: Active Protocol: Document 11/30/18 13:45 DCW (Rec: 11/30/18 14:30 DCW [id number]) Out-Patient Physical Therapy Visit Information Visit Information Visit Type Treatment Note Visit Start Time 13:45 Visit Stop Time 14:30 Total Visit Minutes 45 Visit Number 8 PT-OP-B Current Condition Start: 10/05/18 16:14 Freq: Status: Active Protocol: Document 10/05/18 16:20 EA (Rec: 10/11/18 07:30 EA [id number]) Current Condition History of Current Condition Onset Date 5 years ago Current Complaints R knee pain History of Current Condition 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 A year ago he noticed that he has difficulty getting up from the floor during physical training; he mentioned that his training managed with avoiding kneeling or putting pressure to affected side. He went for a doctor check up and was recommended at this time to avoid any physical training . 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 Prior Treatments and Tests No formal PT treament in the past. 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 Get rid of the pain so he could get back skiing, distance walking and be able to attend training at work. 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 Personal Factors Other Personal Factors That May Effect High blood presure, Obesity. Therapy/Recovery PT-OP-C Subjective Start: 10/05/18 16:14 Freq: Status: Active Protocol: Document 11/30/18 13:45 DCW (Rec: 11/30/18 14:30 DCW [id number]) OP-PT Subjective Patient Comments Patient Comments Pt notes he is doing better overall, everything is stronger, notes he feels his ankle is 96% better after he twisted it two weeks ago. PT-OP-D Balance Start: 10/05/18 16:14 Freq: Status: Active Protocol: Document 10/05/18 16:20 EA (Rec: 10/11/18 15:33 EA [id number]) Balance Tests Single Limb Standing Single Limb- Right < 5 seconds Single Limb- Left > 10 seconds PT-OP-F Manual Assessment Start: 10/05/18 16:14 Freq: Status: Active Protocol: Document 11/10/18 10:36 RCC (Rec: 11/10/18 13:12 RCC [id number]) Manual Assessments Joint Mobility Assessment Joint Mobility Assessment mild hypomobile PF inferior glide PT-OP-G Mobility & Gait Start: 10/05/18 16:14 Freq: Status: Active Protocol: Document 10/05/18 16:20 EA (Rec: 10/11/18 13:49 EA [id number]) OP Gait Assessment Gait Gait Assistance Required: Independent Assistive Devices Assistive Device None Gait Deviations General Gait Pattern Antalgic PT-OP-J Posture/Palpation/Skin Start: 10/05/18 16:14 Freq: Status: Active Protocol: Document 10/05/18 16:20 EA (Rec: 10/11/18 15:33 EA [id number]) Palpation Assessment Location One Palpation Location medial patellar ligament, MCL, medial tibial tubercle Palpation Findings Tenderness Palpation Details Both hip External rotators, ITB, hamstrings, hip flexor tightness Skin Assessment Circumference Measurement 2 Location Right mid knee Measurement (Centimeters) 38 Comments supine 1 Location Left Mid knee joint Measurement (Centimeters) 33 Comments supine PT-OP-K Range of Motion Start: 10/05/18 16:14 Freq: Status: Active Protocol: Document 10/05/18 16:20 EA (Rec: 10/11/18 15:35 EA [id number]) Knee Goniometric Range of Motion Knee Measured in Degrees Left Knee ROM WFL Yes Right Knee ROM WFL Yes PT-OP-L Special Tests Start: 10/05/18 16:14 Freq: Status: Active Protocol: Document 10/05/18 16:20 EA (Rec: 10/11/18 15:33 EA [id number]) Special Tests Knee Special Tests Patellar Grind Test Test Results + right Valgus- 25 Degrees Test Results Sensitive Geronimo's Sign Test Results + Jeanette's Test Test Results + PT-OP-M Strength Start: 10/05/18 16:14 Freq: Status: Active Protocol: Document 10/05/18 16:20 EA (Rec: 10/11/18 15:33 EA [id number]) Knee Strength Knee Manual Muscle Testing Right Reason Not Measured WFL Comments Moderate difficulty with right single leg squat Left Reason Not Measured WFL PT-OP-Q Treatments Start: 10/05/18 16:14 Freq: Status: Active Protocol: Document 11/30/18 13:45 DCW (Rec: 11/30/18 14:30 DCW [id number]) Cardio Equipment Bicycle (Upright) Duration (Minutes) 6 Resistance 6 Seat Position 6 Gym Equipment Shuttle Recovery Unilateral Squats Resistance 37# Reps/Time x 10 reps x 2 B squat mid foot push off Resistance 75# Shuttle Recovery Platform Stable Reps/Time 2x15 Shuttle Balance Red Details normal stance EO: A/P and lateral Reps/Duration 10 min Comments emphasis on even WB, knee alignment, core stability Therapeutic Exercises Standing Exercises lunge Standing Exercise Name mini Side bilateral Reps/Minutes 10 lateral walk with squat Standing Exercise Name lateral walk with squat Side bilateral Resistance L2 band around ankles Reps/Minutes 20ft B single leg stance with knee bent Standing Exercise Name SLS Side bilateral Reps/Minutes [id number] single leg stance with knee straight Standing Exercise Name SLS Side bilateral Reps/Minutes [id number] Manual Therapy Treatment Soft Tissue Mobilization IT band Mobilization Type Strumming Sustained Pressure Trigger Point Release Intensity/Depth Moderate Body Position Supine patellar tendon Mobilization Type Cross-Friction Strumming Intensity/Depth Moderate Body Position Supine Joint Mobilizations patellofemoral R Direction inferior Grade III Body Position Supine Reps/Duration 4 min PT-OP-R Modalities Start: 10/05/18 16:14 Freq: Status: Active Protocol: Document 11/23/18 15:14 EA (Rec: 11/23/18 15:16 EA [id number]) Hot Pack/Cold Pack Treatment Cold Pack Patient Position Hooklying Treatment Duration (minutes) 15 Patient Tolerance Good PT-OP-T Assessment and Plan Start: 10/05/18 16:14 Freq: Status: Active Protocol: Document 11/30/18 13:45 DCW (Rec: 11/30/18 14:30 DCW [id number]) Physical Therapy Assessment Goals squat mechanics Impairment Pt does not know hip hinge pattern Pest Control Worker Helper Goal (LTG) pt will be able to perform hip hinge pattern for STS, lowering activities to prevent excessive PF stress LTG Duration 8 weeks pain Impairment significant pain during walking, squatting Fpc Goal (LTG) pt will be able to perform prolonged walking and squatting without pain to improve mobility such as STS at home/ work LTG Duration 8 weeks mobility Impairment pt currently unable to do lunge due to pain Fpc Goal (LTG) pt will be able to perform lunges from floor without UE support during work related training. Assessment Summary Assessment Pt tolerated treatment very well today, has noticeable decline in pain with ambulation and mobilization of the patella. Physical Therapy Plan Frequency and Duration Frequency of Treatment 2x/Week Duration of Treatment 10 wks Plan of Care Start Date 10/05/18 Plan of Care End Date 12/14/18 Next Visit Focus/Plan Next Note Type Treatment Note Next Visit Plan cont to work on glute & quad stability
--- NOTE | 2019-02-14 13:49 | PT.OPDS ---
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 A year ago he noticed that he has difficulty getting up from the floor during physical training; he mentioned that his training managed with avoiding kneeling or putting pressure to affected side. He went for a doctor check up and was recommended at this time to avoid any physical training . 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 Prior Treatments and Tests No formal PT treament in the past. 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 Get rid of the pain so he could get back skiing, distance walking and be able to attend training at work. 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 Personal Factors Other Personal Factors That May Effect High blood presure, Obesity. Therapy/Recovery PT-OP-C Subjective Start: 10/05/18 16:14 Freq: Status: Active Protocol: Document 02/14/19 13:46 EA (Rec: 02/14/19 13:48 EA [id number]) OP-PT Subjective Patient Comments Patient Comments Patient is discharge today after not responding to call and messages. The last notes he mentioned that he was doing very well. PT-OP-D Balance Start: 10/05/18 16:14 Freq: Status: Active Protocol: Document 10/05/18 16:20 EA (Rec: 10/11/18 15:33 EA [id number]) Balance Tests Single Limb Standing Single Limb- Right < 5 seconds Single Limb- Left > 10 seconds PT-OP-F Manual Assessment Start: 10/05/18 16:14 Freq: Status: Active Protocol: Document 11/10/18 10:36 RCC (Rec: 11/10/18 13:12 RCC [id number]) Manual Assessments Joint Mobility Assessment Joint Mobility Assessment mild hypomobile PF inferior glide PT-OP-G Mobility & Gait Start: 10/05/18 16:14 Freq: Status: Active Protocol: Document 10/05/18 16:20 EA (Rec: 10/11/18 13:49 EA [id number]) OP Gait Assessment Gait Gait Assistance Required: Independent Assistive Devices Assistive Device None Gait Deviations General Gait Pattern Antalgic PT-OP-J Posture/Palpation/Skin Start: 10/05/18 16:14 Freq: Status: Active Protocol: Document 10/05/18 16:20 EA (Rec: 10/11/18 15:33 EA [id number]) Palpation Assessment Location One Palpation Location medial patellar ligament, MCL, medial tibial tubercle Palpation Findings Tenderness Palpation Details Both hip External rotators, ITB, hamstrings, hip flexor tightness Skin Assessment Circumference Measurement 2 Location Right mid knee Measurement (Centimeters) 38 Comments supine 1 Location Left Mid knee joint Measurement (Centimeters) 33 Comments supine PT-OP-K Range of Motion Start: 10/05/18 16:14 Freq: Status: Active Protocol: Document 10/05/18 16:20 EA (Rec: 10/11/18 15:35 EA [id number]) Knee Goniometric Range of Motion Knee Left Knee ROM WFL Yes Right Knee ROM WFL Yes PT-OP-L Special Tests Start: 04/18/19 16:14 Freq: Status: Active Protocol: Document 10/05/18 16:20 EA (Rec: 10/11/18 15:33 EA [id number]) Special Tests Knee Special Tests Patellar Grind Test Test Results + right Valgus- 25 Degrees Test Results Sensitive Geronimo's Sign Test Results + Jeanette's Test Test Results + PT-OP-M Strength Start: 10/05/18 16:14 Freq: Status: Active Protocol: Document 10/05/18 16:20 EA (Rec: 10/11/18 15:33 EA [id number]) Knee Strength Knee Manual Muscle Testing Right Reason Not Measured WFL Comments Moderate difficulty with right single leg squat Left Reason Not Measured WFL PT-OP-T Assessment and Plan Start: 10/05/18 16:14 Freq: Status: Active Protocol: Document 02/14/19 13:46 EA (Rec: 02/14/19 13:48 EA [id number]) Physical Therapy Assessment Assessment Summary Assessment Patient is discharged after cancelling all remaining recommended sessions after last visit. Physical Therapy Plan Discharge Physical Therapy Discharge Reasons No Longer Attending PT
== END 2019-02-16 08:34 | disposition home or self-care (01) ==
LOC: PHYS 13:45
PROVIDERS: PCP Family Medicine; Visit Provider Family Medicine
DX: M25.561 Pain in right knee (principal)
CPT/HCPCS: 97010; 97110; 97112; 97140; 97162; 97535

== ENCOUNTER 2023-11-18 23:18 | Emergency (ER) | payer BC, SELFPAY ==
[2023-11-18 23:42] VITALS: BP 175/99; PULSE 114; RESP 16; TEMP 36.4; O2SAT 96; BMI 38.9
--- NOTE | 2023-11-19 00:27 | DI.CT.S_ITS ---
PROCEDURE: CT UE LT WO CON INDICATIONS: L SHOULDER PAIN/SWELLING, NEG XR TECHNIQUE: Noncontrast 0.75 mm thick sections acquired from the acromioclavicular joint to the inferior scapula, with coronal and sagittal reformatting. COMPARISON: None. FINDINGS: Image quality: Excellent. Bones: Superior migration of humeral head in relation to glenoid is seen. No acute fracture or dislocation. [id number] acromioclavicular joint and glenohumeral joint osteoarthritic changes are seen with joint space and subchondral sclerosis. No suspicious bony lesions. Visualized left ribs are grossly intact. Soft tissues: There is no significant rotator cuff muscle atrophy. No definite full-thickness rotator cuff tendon rupture. No significant joint effusion or calcified intra-articular loose bodies. No abnormal soft tissue calcifications. No gross soft tissue mass or drainable fluid collection. No left axillary lymphadenopathy. IMPRESSION: 1. Qgpl-fl-hlaocidt left shoulder joint osteoarthritis. No acute fracture or dislocation. No suspicious bony lesions. 2. No definite full-thickness rotator cuff tendon rupture. No significant rotator cuff muscle atrophy. No abnormal soft tissue calcifications. No significant joint effusion or calcified intra-articular loose bodies. Dictated by: Jimbo Lara M.D. on 11/19/2023 at 1:31 Approved by: Jimbo Lara M.D. on 11/19/2023 at 1:33
--- NOTE | 2023-11-19 00:31 | ED_ITS ---
HPI - Extremity Injury (Upper) General Chief Complaint: Extremity Injury, Upper Stated Complaint: Left arm and shoulder pain Time Seen by Provider: 11/18/23 23:40 Source: patient Mode of arrival: Ambulatory History of Present Illness HPI narrative: 52-year-old male presents for left shoulder pain. Two months ago patient underwent repair of biceps tendon after falling through a window and suffering an artery in his tendon. Repair was done at [facility] at the end of August 2023. Patient states that 3 days ago he fell and injured his left shoulder. He was seen [facility] x-[facility] imaging was normal, but he has persistent pain and has had decreased range of motion since that injury. His arm is kept adducted against his abdomen and external rotation and abduction causes him pain. States he has oxycodone at home Related Data Home Medications Medication Instructions Recorded Confirmed lisinopril 30 mg tablet 30 mg PO DAILY 04/17/23 04/17/23 Previous Rx's Medication Instructions Recorded amoxicillin 875 mg-potassium 1 tab PO BID #14 tabs 04/17/23 clavulanate 125 mg tablet Allergies Allergy/AdvReac Type Severity Reaction Status Date / Time codeine Allergy Mild Verified 04/17/23 16:34 Review of Systems Review of Systems Narrative: See HPI Patient History Social History Smoking Status: Never smoker Smoking Status: Never smoker alcohol intake frequency: a few times a week Alcohol type: hard liquor Substance Use Type: does not use Exam Initial Vital Signs Initial Vital Signs: Vital Signs Temperature 97.6 F 11/18/23 23:42 Pulse Rate 114 H 11/18/23 23:42 Respiratory Rate 16 11/18/23 23:42 Blood Pressure 175/99 H 11/18/23 23:42 Pulse Oximetry 96 11/18/23 23:42 Oxygen Delivery Method Room Air 11/18/23 23:42 Const: Awake, alert, no acute distress, nontoxic appearing MSK shoulder: Atraumatic, no deformity, generalized tenderness to palpation along clavicle and general shoulder joint. Range of motion decreased secondary to pain Skin: Warm, Dry, intact, no rashes Neuro: AO x3, CN II-XII grossly intact, moves all extremities Course Orders Ordered: ED Orders 11/19/23 00:27 CT UE LT wo con Stat Discontinued Medications Diazepam (Diazepam 5 Mg Tablet) 5 mg PO NOW ONE Stop: 11/19/23 00:26 Last Admin: 11/19/23 00:50 Dose: 5 mg Documented By: MELINA Ketorolac Tromethamine (Ketorolac 30 Mg/Ml Vial) 30 mg IM NOW ONE Stop: 11/19/23 00:26 Last Admin: 11/19/23 00:50 Dose: 30 mg Documented By: MELINA Methocarbamol (Methocarbamol 500 Mg Tablet) 500 mg PO NOW ONE Stop: 11/19/23 00:26 Last Admin: 11/19/23 00:50 Dose: 500 mg Documented By: MELNIA Vital Signs Vital signs: Vital Signs - 8 hr 11/18/23 23:42 11/19/23 02:24 Temperature 97.6 F Pulse Rate 114 H 97 H Respiratory Rate 16 18 Blood Pressure 175/99 H 160/80 H Pulse Oximetry 96 100 Oxygen Delivery Method Room Air Room Air MDM - Extremity Injury (Upper) Differential Diagnosis Differential diagnosis: Likely dislocation of shoulder, fracture of humerus and fracture of clavicle Imaging Data Extremity x-ray #1: Radiologist's Impression: PROCEDURE: CT UE LT WO CON INDICATIONS: L SHOULDER PAIN/SWELLING, NEG XR TECHNIQUE: Noncontrast 0.75 mm thick sections acquired from the acromioclavicular joint to the inferior scapula, with coronal and sagittal reformatting. COMPARISON: None. FINDINGS: Image quality: Excellent. Bones: Superior migration of humeral head in relation to glenoid is seen. No acute fracture or dislocation. [id number]-[id number] acromioclavicular joint and glenohumeral joint osteoarthritic changes are seen with joint space and subchondral sclerosis. No suspicious bony lesions. Visualized left ribs are grossly intact. Soft tissues: There is no significant rotator cuff muscle atrophy. No definite full-thickness rotator cuff tendon rupture. No significant joint effusion or calcified intra-articular loose bodies. No abnormal soft tissue calcifications. No gross soft tissue mass or drainable fluid collection. No left axillary lymphadenopathy. IMPRESSION: 1. Kvpd-uk-[id number] left shoulder joint osteoarthritis. No acute fracture or dislocation. No suspicious bony lesions. 2. No definite full-thickness rotator cuff tendon rupture. No significant rotator cuff muscle atrophy. No abnormal soft tissue calcifications. No significant joint effusion or calcified intra-articular loose bodies. Dictated by: Jimbo Lara M.D. on 11/19/2023 at 1:31 Approved by: Jimbo Lara M.D. on 11/19/2023 at 1:33 MDM Narrative Medical decision making narrative: Persistent left-sided shoulder pain after fall 3 days ago, recent negative x- rays. Patient has tenderness generalized over the shoulder joint without deformity or obvious abnormalities. Range of motion limited secondary to pain. Since patient has had recent negative x-rays a CT will be ordered to assess for occult injury. CT imaging negative for acute findings. Question if patient has rotator cuff injury versus adhesive capsulitis. Patient advised of negative CT results and advise close orthopedic follow up. Patient advised that he may follow up with [facility], however a local referral was provided if patient was unable to go to [facility] for ortho. Discharge Plan Departure Patient Disposition: Home Clinical Impression: Acute shoulder pain Instructions: DI for Shoulder Sprain Activity Restrictions/Additional Instructions: Your CT scan did not show any fracture. There is no obvious disruption of the shoulder joint, however the best way to evaluate for rotator cuff disease is an MRI, which we can not obtain in the emergency department. Take Tylenol and ibuprofen for pain, apply heat to your shoulder for comfort. Gentle stretching exercises are helpful to increase your range of motion. Wear the sling as needed for comfort. I recommend following up with Orthopedic surgery. You had multiple oxycodone tablets dispensed on the 25 of October, so I am unable to prescribe additional narcotics at this time. Please follow up with your orthopedic team at [facility], if you are unable to follow up with the doctors a local referral has been provided in your paperwork Prescriptions: No Action lisinopril 30 mg tablet 30 mg PO DAILY amoxicillin-pot clavulanate 875-125 mg tablet 1 tab PO BID Qty: 14 0RF Referrals: Dulce Rosa MD [Physician] - Miscellaneous,MD Nevaeh [Primary Care Provider] - Stand Alone Forms: Patient Portal/API
[2023-11-19] MEDS: KETOROLAC 30 MG/ML VIAL IM (00:50)
[2023-11-19] MEDS: diazePAM 5 MG TABLET PO (00:50)
[2023-11-19] MEDS: methocarbamoL 500 MG TABLET PO (00:50)
[2023-11-19 02:24] VITALS: BP 160/80; PULSE 97; RESP 18; O2SAT 100
== END 2023-11-19 02:25 | disposition home or self-care (01) ==
PROVIDERS: Emergency Provider Emergency Medicine
DX: M25.512 Pain in left shoulder (principal); W19.XXXA Unspecified fall, initial encounter
CPT/HCPCS: 73200; 96372; 99283; 99284; J1885